=== PATIENT | female | born 1995 | race African-American/Black ===

== ENCOUNTER 2017-04-18 09:58 | Emergency (ER) | payer MEDICAID ==
[~2017-04-18] VITALS: Ht 160 cm; Wt 66.0 kg
[~2017-04-18 09:58] MED LIST: KEPPRA PO
[2017-04-18 10:16] VITALS: BP 121/87
== END 2017-04-18 13:59 | disposition left against medical advice (07) ==
LOC: ER 10:31
DX: R51 Headache (principal); Z53.21 Procedure and treatment not carried out due to patient leaving prior to being seen by health care provider

== ENCOUNTER 2017-07-23 18:36 | Emergency (ER) | payer MEDICAID ==
[~2017-07-23] VITALS: Ht 160 cm; Wt 45.0 kg
[2017-07-23 22:30] VITALS: BP 124/79
== END 2017-07-23 23:32 | disposition left against medical advice (07) ==
LOC: ER 18:36
DX: S05.12XA Contusion of eyeball and orbital tissues, left eye, initial encounter (principal); H33.22 Serous retinal detachment, left eye; G40.909 Epilepsy, unspecified, not intractable, without status epilepticus; R51 Headache; W10.9XXA Fall (on) (from) unspecified stairs and steps, initial encounter; Y93.89 Activity, other specified; Y92.098 Other place in other non-institutional residence as the place of occurrence of the external cause; Z79.899 Other long term (current) drug therapy
CPT/HCPCS: 70450; 70486; 81025; 99284

== ENCOUNTER 2017-11-03 12:28 | Emergency (ER) | payer MEDICAID ==
[~2017-11-03] VITALS: Ht 152.4 cm; Wt 45.0 kg
[2017-11-03 15:21] VITALS: BP 124/81
== END 2017-11-03 15:43 | disposition home or self-care (01) ==
LOC: ER 12:28
DX: O20.8 Other hemorrhage in early pregnancy (principal); O26.891 Other specified pregnancy related conditions, first trimester; O21.8 Other vomiting complicating pregnancy; O99.511 Diseases of the respiratory system complicating pregnancy, first trimester; J45.909 Unspecified asthma, uncomplicated; R56.9 Unspecified convulsions; Z3A.10 10 weeks gestation of pregnancy
CPT/HCPCS: 76801; 81025; 99284

== ENCOUNTER 2019-06-27 13:34 | Emergency (ER) | payer MEDICAID ==
[~2019-06-27] VITALS: Ht 175.3 cm; Wt 70.0 kg
[2019-06-27 14:24] VITALS: BP 128/89
== END 2019-06-27 14:30 | disposition home or self-care (01) ==
LOC: ER 13:34
DX: F43.9 Reaction to severe stress, unspecified (principal); J45.909 Unspecified asthma, uncomplicated; R41.82 Altered mental status, unspecified
CPT/HCPCS: 99283

== ENCOUNTER 2020-02-21 19:11 | Emergency (ER) | payer MEDICAID ==
[~2020-02-21] VITALS: Ht 154.9 cm; Wt 50.0 kg
[2020-02-21 22:38] LABS: CLARITY URINE CLOUDY (CLEAR); COLOR URINE YELLOW (YELLOW); KETONES URINE NEGATIVE (NEGATIVE); LEUKOCYTE ESTERASE URINE 3+ (NEGATIVE); NITRITE URINE NEGATIVE (NEGATIVE); OCCULT BLOOD URINE TRACE (NEGATIVE); PH URINE 6.5 (4.5-8.0); PROTEIN URINE NEGATIVE (NEGATIVE)
[2020-02-21] MEDS ORDERED: CEFTRIAXONE SODIUM 250 MG/VIAL IM ONE (23:15)
[2020-02-21] MEDS ORDERED: DOXYCYCLINE HYCLATE 100MG CAPSULE PO ONE (23:15)
[2020-02-22 00:08] VITALS: BP 124/72
[2020-02-25 07:10] LABS: NEISSERIA GONORRHOEAE NAA Positive (Negative)
== END 2020-02-22 00:10 | disposition home or self-care (01) ==
LOC: EDSEX 19:11 → ER 19:11
DX: A54.9 Gonococcal infection, unspecified (principal); N39.0 Urinary tract infection, site not specified; R03.0 Elevated blood-pressure reading, without diagnosis of hypertension; J45.909 Unspecified asthma, uncomplicated; G40.909 Epilepsy, unspecified, not intractable, without status epilepticus; F64.0 Transsexualism
CPT/HCPCS: 76830; 76856; 81003; 81025; 87086; 87210; 87491; 87591; 93005; 96372; 99285; J0696

== ENCOUNTER 2022-01-15 14:25 | Emergency (ER) | payer OTHER, MEDICAID ==
[~2022-01-15] VITALS: Ht 154.9 cm; Wt 49.0 kg
[2022-01-15 14:27] VITALS: BP 133/87
== END 2022-01-15 19:45 | disposition left against medical advice (07) ==
LOC: ER 14:25
DX: Z53.21 Procedure and treatment not carried out due to patient leaving prior to being seen by health care provider (principal)